=== PATIENT | female | born 1960 | race African-American/Black ===

== ENCOUNTER 2017-11-14 09:45 | Outpatient (CLI) | payer OTHER | END 2017-11-14 09:46 | disposition home or self-care (01) | LOC: BICMAMMO 09:45 | PROVIDERS: ATTEND Specialist | DX: Z12.31 Encounter for screening mammogram for malignant neoplasm of breast (principal) | CPT/HCPCS: 77067 ==

== ENCOUNTER 2018-05-29 22:30 | Observation (INO) | payer OTHER ==
[~2018-05-29 22:30] MED LIST: ISOVUE-370 76%-LOCM 1 ML ONE
[2018-05-29 22:54] LABS: #Eosinphils 0.2 thou/uL (0.0-0.7); #Lymphocytes 2.3 thou/uL (1.20-3.40); #Monocytes 0.8 thou/uL (0.11-0.59); #Neutrophils 2.4 thou/uL (1.40-6.50); %Basophils 0.8 % (0.0-1.0); %Eosinophils 2.9 % (0.0-10.0); %Lymphocytes 40.4 % (21.0-51.0); %Monocytes 13.8 % (0.0-10.0); %Neutrophils 42.1 % (42.0-75.0); Hemoglobin 13.4 g/dL (12.0-16.0); Mean Corpuscular HGB CONC 36.3 g/dL (32.0-36.0); Mean Corpuscular Hemoglobin 32.7 pg (27.0-31.0); Mean Corpuscular Volume 90.1 fL (78.0-98.0); Mean Platelet Volume 7.3 fL (7.4-10.4); Platelet Count 206 thou/uL (130-400); RBC Distribution Width 12.8 % (11.5-14.5); Red Blood Cell (RBC) Count 4.08 mill/uL (4.20-5.40); White Blood Cell (WBC) Count 5.6 thou/uL (4.8-10.8)
--- NOTE | 2018-05-29 22:57 | RAD ---
AP VIEW OF THE CHEST: 05/29/18 INDICATION: Chest pain. COMPARISON: Prior exam dated 04/24/14. IMPRESSION: No acute cardiopulmonary abnormality. Clothing artifact slightly limits image detail overlying the le ft lower chest wall. COMMENTS: No consolidation, pleural effusion or pneumothorax is evident. No acute osseous abnormality is eviden t. POS: [facility]
[2018-05-29 23:18] LABS: ALT (SGPT) 26 U/L (8-55); AST (SGOT) 50 U/L (5-34); Albumin 3.8 g/dL (3.5-5.0); Alkaline Phosphatase 102 U/L (40-150); Anion Gap 14 mmol/L (10-20); BUN (Urea Nitrogen) 5 mg/dL (9.8-20.1); Bilirubin, Total 0.3 mg/dL (0.2-1.2); CK (CPK) 444 U/L (29-168); Calc. Creatinine Clearance 0 mL/min (70-130); Calcium 9.2 mg/dL (7.8-10.44); Carbon Dioxide 25 mmol/L (22-29); Chloride 104 mmol/L (98-107); Estimated GFR-MDRD Greater than 90; Globulin 3.9 g/dL (2.4-3.5); Glucose 85 mg/dL (70-105); Potassium 3.5 mmol/L (3.5-5.1); Protein, Total 7.7 g/dL (6.0-8.3); Sodium 139 mmol/L (136-145)
[2018-05-29 23:21] LABS: Troponin I Less than 0.010 ng/mL (< 0.028)
[2018-05-30] MEDS ORDERED: Ketorolac Tromethamine 30 MG/ML VIAL ONE (01:02)
[2018-05-30] MEDS ORDERED: Acetaminophen 500 MG TAB ONE (01:55)
[2018-05-30] MEDS ORDERED: Nitroglycerin 0.4 MG TAB (25 Tab Bottle) ONE (01:55)
[2018-05-30 03:17] LABS: Troponin I 0.012 ng/mL (< 0.028)
[2018-05-30] MEDS ORDERED: Acetaminophen 325 MG TAB PO PRN (03:19)
[2018-05-30] MEDS ORDERED: Sodium Chloride 0.45% 1,000 ML IV SCH (03:30)
[2018-05-30 04:02] VITALS: BMI 43.4
--- NOTE | 2018-05-30 04:22 | HP ---
CHIEF COMPLAINT: Chest pain. HISTORY OF PRESENT ILLNESS: This patient is a 57-year-old female who reports a history of lupus, who presents with several weeks of worsening central chest pain with no radiation. She has no modifying factors. Describes it as pressure-like today, the patient reports that she has some associated shor tness of breath and significant dyspnea on exertion. She has generalized fatigue and weakness. She has lower extremity swelling. She states that, had swelling in her ankles and as she moves up her le gs, it becomes "hard." She reports all of this has been going on for several weeks, decided to come to the hospital today as they seem to be progressing a bit. She reports that she has had a stress te st here in the past, although cannot find any record of that. Today, the patient had some associated nausea and apparently episode of diarrhea with her chest discomfort. REVIEW OF SYSTEMS: Notable for intermittent diarrhea, chest pain, lower extremity edema, shortness o f breath, and generalized weakness, otherwise nothing through a 10-system review. PAST MEDICAL HISTORY: Systemic lupus erythematosus, hypertension, irritable bowel syndrome, asthma, lower extremity DVT. PAST SURGICAL HISTORY: Hysterectomy. The patient apparently has an IVC filter secondary to left low er extremity DVT. FAMILY HISTORY: Notable for coronary artery disease in her father, hypertension and Alzheimer's in h er mother. SOCIAL HISTORY: The patient dips Earle snuff. She drinks socially. Denies drugs. She is not . Her surrogate decision maker would be, Jorge Robledo, her brother and she is FULL CODE. PHYSICAL EXAMINATION: VITAL SIGNS: Pulse 87, BP 119/66, 96% on room air. GENERAL APPEARANCE Age appropriate female who is awake and alert, in no acute distress. HEENT: PERRL. NECK: Supple and symmetric. No JVD, lymphadenopathy, or carotid bruits. HEART: Regular without murmurs. LUNGS: Clear to auscultation bilaterally. No wheezes or rales. ABDOMEN: Soft, nontender, nondistended, positive bowel sounds. EXTREMITIES: Warm and dry. There is a bit of edema, but she has both ankles wrapped with Stevan wraps, which apparently happened here in the emergency department. Pulses are normal. NEUROLOGIC: Patient is oriented x3. Cranial nerves are intact. She has no focal deficits. SKIN: Generally warm and dry. PSYCHIATRIC: The patient has a normal affect and behavior. LABORATORY AND DIAGNOSTIC DATA: White count 5.6, hemoglobin 13.4, platelets 206,000. D-dimer was 0. 65, sodium 139, potassium 3.5, chloride 104, CO2 of 25, BUN 5, creatinine 0.79, AST is 50, ALT 26. C K 444, CK-MB 7, troponin less than 0.01. BNP is 90. Lower extremity Doppler is negative. Chest CT angiogram is negative. Chest x-ray is normal. IMPRESSION AND PLAN: 1. Chest pain. The patient reports that she has had a stress test here in the past, but it was not a nuclear medicine type. Etiology could be related to her GI symptoms are cardiac in nature. We violet l keep the patient in observation on telemetry monitoring. We will obtain serial cardiac isoenzymes. We will need to attempt to obtain her results of her prior stress test. She was not sure when that was how long ago it was, but given her underlying asthma type symptoms, we will not order a Cardioli te at this time. 2. Dyspnea on exertion. Order echocardiogram in light of the dyspnea and the worsening lower extrem ity edema, although her BNP is actually normal. 3. History of lupus. The patient reports she is on medication for this, but is not on her current m edication list. She says it is hydroxychloroquine, but she is apparently may be on hydrochlorothiazi de. We will need to attempt to get some more information from her PCP, Dr. Abdoulaye Medley to clarify that situation for her. 4. History of asthma. We will have p.r.n. nebulizers available to her. 5. History of irritable bowel syndrome. 6. History of asthma.
[2018-05-30 06:28] LABS: Troponin I 0.029 ng/mL (< 0.028)
[2018-05-30] MEDS ORDERED: ALPRAZOLAM 2 MG PO PRN (08:21)
[2018-05-30] MEDS ORDERED: Ergocalciferol 1.25 MG(50,000 UNITS) CAP PO SCH ×2 (08:30→09:00)
--- NOTE | 2018-05-30 08:42 | CT ---
PRELIMINARY REPORT/[facility]/EMERGENTY AFTER-HOURS PROCEDURE CT Angiography Chest With Intravenous Contrast CLINICAL HISTORY: 57 years old, female; Signs and symptoms; Dyspnea and shortness of breath; Patient HX: F57 presents w ith intermitted SOB that worsened tonight. Pt reports le swelling x1 week and also reports burning/ti ngling sensation in le. Pt reports a HX of dvts. Pt reports she has been taking aspirin for the past few days. Pt reports diarrhea and nausea. Pt reports pmhx of lupus TECHNIQUE: Axial computed tomographic angiography images of the chest with intravenous contrast using pulmonary embolism protocol. MIP reconstructed images were created and reviewed. COMPARISON: No relevant prior studies available. FINDINGS: Pulmonary arteries: No acute findings. No evidence of pulmonary embolism. Aorta: No acute findings. No thoracic aortic aneurysm or dissection. Lungs: No acute findings. No mass. No consolidation. Pleural space: No effusion. No pneumothorax. Heart: Mild cardiomegaly. No pericardial effusion. Bones/joints: No acute fracture. No dislocation. Soft tissues: No acute findings. Lymph nodes: No lymphadenopathy. Upper abdomen: Fatty infiltration of the liver. Left renal cortical cyst. IMPRESSION: No evidence of pulmonary embolism. Thank you for allowing us to participate in the care of your patient. Dictated and Authenticated by: Tony Moise MD 05/30/2018 12:44 AM Central Time ([place] & [place]) FINAL REPORT EMERGENCY AFTER HOURS CT ANGIOGRAM THORAX WITH IV CONTRAST AND 3D RECONSTRUCTIONS: Date: 05/29/18 HISTORY: Dyspnea, intermittent shortness of breath, worsening tonight. Lower extremity swelling for 1 week. IMPRESSION: 1. No CT evidence of a pulmonary embolus. 2. Atelectasis in the lingula. 3. Fatty infiltration of the liver. 4. 3.1 cm left renal cyst. Findings are in agreement with the preliminary report by Akira. POS: [facility]
--- NOTE | 2018-05-30 08:44 | ULT ---
PRELIMINARY REPORT/[facility]/EMERGENTY AFTER-HOURS PROCEDURE US Duplex Bilateral Lower Extremity Veins CLINICAL HISTORY: 57 years old, female; Pain and signs and symptoms; Edema, localized; Lower extremity, bilateral; Leg, lower and foot; Patient HX: Ble pain/edema more to lle foot. ; Additional info: Previous thrombus in left gsv p to mid calf in (2009) TECHNIQUE: Real-time duplex ultrasound scan of the bilateral lower extremity veins integrating B-mode two dimens ional vascular structure, Doppler spectral analysis, color flow Doppler imaging and compression. COMPARISON: No relevant prior studies available. FINDINGS: Right deep veins: No acute findings. No DVT in the right common femoral, femoral, popliteal, visualiz ed calf veins. The veins demonstrate normal color flow, are normally compressible, with normal phasic flow and/or augmentation response. Right superficial veins: No acute findings. No thrombus in the visualized right great saphenous vein. Left deep veins: No acute findings. No DVT in the left common femoral, femoral, popliteal, visualized calf veins. The veins demonstrate normal color flow, are normally compressible, with normal phasic f low and/or augmentation response. Left superficial veins: No acute findings. No thrombus in the visualized left great saphenous vein. Soft tissues: Calf edema. IMPRESSION: No deep venous thrombosis. Thank you for allowing us to participate in the care of your patient. Dictated and Authenticated by: Tony Moise MD 05/30/2018 12:59 AM Central Time ([place] & [place]) FINAL REPORT BILATERAL LOWER EXTREMITY VENOUS DOPPLER ULTRASOUND: Date: 05/29/18 FINDINGS/IMPRESSION: I agree with the preliminary report given by Akira. POS: [facility]
[2018-05-30] MEDS ORDERED: Lubiprostone 24 MCG CAP PO SCH (09:00)
[2018-05-30] MEDS ORDERED: TROSPIUM 20 MG TABLET PO SCH (09:00)
[2018-05-30] MEDS ORDERED: Non-Formulary Item 1 EACH (Omeprazole [Omeprazole] 40 MG) PO SCH (09:00)
[2018-05-30] MEDS ORDERED: Allopurinol 300 MG TAB PO SCH (09:00)
[2018-05-30] MEDS ORDERED: Hydroxychloroquine Sulfate 200 MG TAB PO SCH (09:00)
[2018-05-30] MEDS ORDERED: Non-Formulary Item 1 EACH (Acetaminophen With Codeine [Tylenol With Codeine #4] 1 TABLET) PO PRN (09:16)
[2018-05-30 09:37] LABS: CKMB 4.8 ng/mL (0-6.6); Troponin I Less than 0.010 ng/mL (< 0.028)
[2018-05-30] MEDS ORDERED: ALPRAZolam 1 MG TAB PO PRN (09:46)
[2018-05-30] MEDS ORDERED: Acetaminophen/Codeine 30-300mg Tablet PO PRN (09:48)
[2018-05-30] MEDS ORDERED: Regadenoson 0.4 MG/5 ML SYRINGE ONE (10:08)
--- NOTE | 2018-05-30 12:19 | NM ---
CARDIAC SPECT: CLINICAL HISTORY: 57-year-old female with chest pain, asthma, and hypertension. TECHNIQUE: A stress-only myocardial perfusion scan was performed following the intravenous administration of 27 mCi technetium-99m sestamibi. Pharmacologic stress with Lexiscan was monitored and interpreted by Shantell Sheehan NP. FINDINGS: Homogeneous tracer distribution is seen in the myocardial segments on the post stress images. GATED SPECT LVEF: 68%. WALL MOTION EXAM: Normal. IMPRESSION: Normal post stress myocardial perfusion scan. POS: [facility]
[2018-05-30 15:11] VITALS: BP 123/59; TEMP 98.3
[2018-05-30] MEDS ORDERED: Mirtazapine 30 MG TAB PO SCH (21:00)
== END 2018-05-30 17:37 | disposition home or self-care (01) ==
LOC: ERS 22:30 → 2SW 05-30 03:23
PROVIDERS: ADMIT Internal Medicine; ATTEND Internal Medicine
DX: R07.89 Other chest pain (principal); M32.9 Systemic lupus erythematosus, unspecified; I10 Essential (primary) hypertension; J45.909 Unspecified asthma, uncomplicated; K58.9 Irritable bowel syndrome, unspecified; F17.290 Nicotine dependence, other tobacco product, uncomplicated; Z86.718 Personal history of other venous thrombosis and embolism; Z79.899 Other long term (current) drug therapy; Z88.0 Allergy status to penicillin; Z88.1 Allergy status to other antibiotic agents; Z88.5 Allergy status to narcotic agent; Z95.828 Presence of other vascular implants and grafts
CPT/HCPCS: 36415; 71045; 71275; 78452; 80053; 82553; 83880; 84484; 85025; 85379; 93005; 93017; 93970; 94760; 96361; 96374; A9500; G0378; J1885; J2785

== ENCOUNTER 2018-10-07 20:47 | Emergency (ER) | payer OTHER | END 2018-10-07 21:30 | disposition home or self-care (01) | LOC: ERS 20:47 | DX: S43.52XA Sprain of left acromioclavicular joint, initial encounter (principal); I10 Essential (primary) hypertension; F41.9 Anxiety disorder, unspecified; F17.220 Nicotine dependence, chewing tobacco, uncomplicated; Z86.718 Personal history of other venous thrombosis and embolism; Z79.899 Other long term (current) drug therapy; Z79.891 Long term (current) use of opiate analgesic; X58.XXXA Exposure to other specified factors, initial encounter | CPT/HCPCS: 99283 ==

== ENCOUNTER 2018-11-20 08:25 | Outpatient (CLI) | payer OTHER ==
--- NOTE | 2018-11-20 09:33 | BD ---
BONE DENSITOMETRY USING DEXA: Date: 11/20/18 HISTORY: Postmenopausal screening for osteoporosis. FINDINGS: Lumbar Spine: BMD (g/cm2) L1 1.035 T-Score: 0.4 Z-Score: 1.4 L2 1.115 T-Score: 0.8 Z-Score: 1.9 L3 1.289 T-Score: 1.9 Z-Score: 3.0 L4 1.104 T-Score: 0.4 Z-Score: 1.6 L1-L4 1.143 T-Score: 0.9 Z-Score: 2.0 Femoral Neck: 0.887 T-Score: 0.3 Z-Score: 1.4 Total Femur: 0.969 T-Score: 0.2 Z-Score: 1.0 IMPRESSION: Normal bone mineral density. No evidence of osteopenia/osteoporosis. POS: [facility]
== END 2018-11-20 08:26 | disposition home or self-care (01) ==
LOC: BICMAMMO 08:25
PROVIDERS: ATTEND Specialist
DX: Z12.31 Encounter for screening mammogram for malignant neoplasm of breast (principal); Z13.820 Encounter for screening for osteoporosis
CPT/HCPCS: 77067; 77080

== ENCOUNTER 2019-03-25 11:20 | Outpatient (CLI) | payer OTHER ==
--- NOTE | 2019-03-25 12:51 | CT ---
CT HEAD WITH AND WITHOUT IV CONTRAST: Date: 03/25/19 HISTORY: Headaches. Recent fall. COMPARISON: 05/19/12. FINDINGS: There is no evidence of acute intracranial hemorrhage or infarct. The ventricles appear normal in siz e, shape, and position. There is no mass effect, shift of midline structures, or abnormal areas of co ntrast enhancement. No depressed skull fractures. Visualized paranasal sinuses remain well aerated. IMPRESSION: No acute intracranial abnormalities are demonstrated. POS: [facility]
== END 2019-03-25 11:21 | disposition home or self-care (01) ==
LOC: BICCT 11:20
PROVIDERS: ATTEND Specialist
DX: F07.81 Postconcussional syndrome (principal)
CPT/HCPCS: 70470

== ENCOUNTER 2019-04-09 09:55 | Emergency (ER) | payer OTHER ==
[2019-04-09] MEDS ORDERED: Proparacaine 0.5% Opth 15 ML BOT ONE (11:01)
[2019-04-09] MEDS ORDERED: Fluorescein Opthalmic Strip ONE (11:01)
== END 2019-04-09 12:00 | disposition home or self-care (01) ==
LOC: ERS 09:55
DX: H10.9 Unspecified conjunctivitis (principal); I10 Essential (primary) hypertension; Z86.718 Personal history of other venous thrombosis and embolism; F32.9 Major depressive disorder, single episode, unspecified; F41.9 Anxiety disorder, unspecified; F17.220 Nicotine dependence, chewing tobacco, uncomplicated; Z79.899 Other long term (current) drug therapy
CPT/HCPCS: 99283

== ENCOUNTER 2019-04-30 19:56 | Emergency (ER) | payer OTHER ==
[2019-04-30] MEDS ORDERED: Ibuprofen 800 MG TAB ONE (20:30)
[2019-04-30 23:09] LABS: #Basophils 0.1 thou/uL (0.0-0.2); #Eosinphils 0.1 thou/uL (0.0-0.7); #Lymphocytes 2.8 thou/uL (1.20-3.40); #Monocytes 0.6 thou/uL (0.11-0.59); #Neutrophils 2.4 thou/uL (1.40-6.50); %Basophils 1.4 % (0.0-1.0); %Eosinophils 1.4 % (0.0-10.0); %Lymphocytes 47.3 % (21.0-51.0); %Monocytes 10.1 % (0.0-10.0); %Neutrophils 39.9 % (42.0-75.0); Hemoglobin 12.4 g/dL (12.0-16.0); Mean Corpuscular HGB CONC 35.1 g/dL (32.0-36.0); Mean Corpuscular Hemoglobin 30.5 pg (27.0-31.0); Mean Corpuscular Volume 86.9 fL (78.0-98.0); Mean Platelet Volume 7.9 fL (7.4-10.4); Platelet Count 208 thou/uL (130-400); RBC Distribution Width 12.5 % (11.5-14.5); Red Blood Cell (RBC) Count 4.06 mill/uL (4.20-5.40); White Blood Cell (WBC) Count 5.9 thou/uL (4.8-10.8)
[2019-04-30 23:31] LABS: ALT (SGPT) 24 U/L (8-55); AST (SGOT) 32 U/L (5-34); Alkaline Phosphatase 70 U/L (40-150); Anion Gap 15 mmol/L (10-20); BUN (Urea Nitrogen) 12 mg/dL (9.8-20.1); Bilirubin, Total 0.3 mg/dL (0.2-1.2); Calc. Creatinine Clearance 0 mL/min (70-130); Calcium 9.5 mg/dL (7.8-10.44); Carbon Dioxide 24 mmol/L (22-29); Chloride 103 mmol/L (98-107); Estimated GFR-MDRD 90; Globulin 3.5 g/dL (2.4-3.5); Glucose 88 mg/dL (70-105); Potassium 3.9 mmol/L (3.5-5.1); Protein, Total 7.5 g/dL (6.0-8.3); Sodium 138 mmol/L (136-145)
--- NOTE | 2019-04-30 23:51 | CT ---
CT OF THE BRAIN WITHOUT CONTRAST: 04/30/19 HISTORY: Dizziness, near syncope. FINDINGS: Comparison made with the exam of 03/25/19. No evidence of acute infarct, hemorrhage, midline shift or abnormal extra-axial fluid collections are seen. The ventricular size is normal and the basilar cisterns patent. The bony calvarium is intact. There is mild mucosa disease in the right ethmoid sinuses. IMPRESSION: No CT evidence of acute intracranial process. POS: [facility]
--- NOTE | 2019-04-30 23:56 | CT ---
CT ORBITS WITH AND WITHOUT IV CONTRAST: 04/30/19 HISTORY: Left eye pain and swelling. Onset two weeks ago when the patient sprayed bug spray in her eye. FINDINGS: No proptosis or retrobulbar mass is seen. The extraocular musculature and optic nerves are bilaterall y symmetric without abnormal postcontrast enhancement. No loculated fluid collection is seen in the s oft tissues to suggest abscess formation. The bony orbital marion are intact. There is mucosal disease in the paranasal sinuses. There is mild soft tissue swelling in the medial aspect of the left eye. IMPRESSION: No evidence of soft tissue abscess. POS: [facility]
[2019-05-01] MEDS ORDERED: Proparacaine 0.5% Opth 15 ML BOT ONE (00:11)
[2019-05-01] MEDS ORDERED: Fluorescein Opthalmic Strip ONE (01:10)
--- NOTE | 2019-05-02 16:56 | EKG ---
Test Reason : EMERGENCY EXAM Blood Pressure : / mmHG Vent. Rate : 073 BPM Atrial Rate : 073 BPM P-R Int : 150 ms QRS Dur : 090 ms QT Int : 414 ms P-R-T Axes : 069 057 025 degrees QTc Int : 456 ms Normal sinus rhythm Normal ECG Confirmed by YANELY ARRIAGA DO ([id number]), restaurant expeditor JORGE CORONADO ([id number]) on 05/02/2019 4:56:23 PM Referred By: BART Confirmed By:YANELY ARRIAGA DO
== END 2019-05-01 01:16 | disposition home or self-care (01) ==
LOC: ERS 19:56
DX: L03.213 Periorbital cellulitis (principal); I10 Essential (primary) hypertension; M32.9 Systemic lupus erythematosus, unspecified; F32.9 Major depressive disorder, single episode, unspecified; F41.9 Anxiety disorder, unspecified; M06.9 Rheumatoid arthritis, unspecified; F17.220 Nicotine dependence, chewing tobacco, uncomplicated; Z86.718 Personal history of other venous thrombosis and embolism; Z79.899 Other long term (current) drug therapy
CPT/HCPCS: 70450; 70481; 80053; 84484; 85025; 85652; 86140; 93005

== ENCOUNTER 2019-11-24 09:47 | Outpatient (CLI) | payer OTHER ==
--- NOTE | 2019-11-25 10:12 | MMO ---
Bilateral MAMMO Bilat Screen DDI. CLINICAL HISTORY: Patient is 59 years old and is seen for screening. The patient has no family history of breast cancer. The patient has no personal history of cancer. VIEWS: The views performed were: bilateral craniocaudal and bilateral mediolateral oblique. FILMS COMPARED: The present examination has been compared to prior imaging studies performed at [facility] on 09/14/2014, 09/19/2015, 09/21/2016 and 11/14/2017. This study has been interpreted with the assistance of computer-aided detection. MAMMOGRAM FINDINGS: The breasts are almost entirely fat. There are no suspicious masses, suspicious calcifications, or new areas of architectural distortion. IMPRESSION: THERE IS NO MAMMOGRAPHIC EVIDENCE OF MALIGNANCY. A ROUTINE FOLLOW-UP MAMMOGRAM IN 1 YEAR IS RECOMMENDED. ACR BI-RADS Category 1 - Negative MAMMOGRAPHY NOTE: 1. A negative mammogram report should not delay a biopsy if a dominant of clinically suspicious mass is present. 2. Approximately 10% to 15% of breast cancers are not detected by mammography. 3. Adenosis and dense breasts may obscure an underlying neoplasm. Reported by: JAVIER SCHOFIELD MD Electonically Signed: [id number]
== END 2019-11-24 09:48 | disposition home or self-care (01) ==
LOC: BICMAMMO 09:47
PROVIDERS: ATTEND Specialist
DX: Z12.31 Encounter for screening mammogram for malignant neoplasm of breast (principal)
CPT/HCPCS: 77067

== ENCOUNTER 2020-11-25 09:15 | Outpatient (CLI) | payer OTHER ==
--- NOTE | 2020-11-25 10:02 | MMO ---
Bilateral MAMMO Bilat Screen DDI. CLINICAL HISTORY: Patient is 60 years old and is seen for screening. The patient has no family history of breast cancer. The patient has no personal history of cancer. VIEWS: The views performed were: bilateral craniocaudal and bilateral mediolateral oblique. FILMS COMPARED: The present examination has been compared to prior imaging studies performed at [facility] on 09/19/2015, 09/21/2016, 11/14/2017 and 11/24/2019. This study has been interpreted with the assistance of computer-aided detection. MAMMOGRAM FINDINGS: The breasts are almost entirely fat. There are no suspicious masses, suspicious calcifications, or new areas of architectural distortion. IMPRESSION: THERE IS NO MAMMOGRAPHIC EVIDENCE OF MALIGNANCY. A ROUTINE FOLLOW-UP MAMMOGRAM IN 1 YEAR IS RECOMMENDED. ACR BI-RADS Category 1 - Negative MAMMOGRAPHY NOTE: 1. A negative mammogram report should not delay a biopsy if a dominant of clinically suspicious mass is present. 2. Approximately 10% to 15% of breast cancers are not detected by mammography. 3. Adenosis and dense breasts may obscure an underlying neoplasm. Reported by: ALANNAH CAMPOS MD Electonically Signed: [id number]
== END 2020-11-25 09:16 | disposition home or self-care (01) ==
LOC: BICMAMMO 09:15
PROVIDERS: ATTEND Specialist
DX: Z12.31 Encounter for screening mammogram for malignant neoplasm of breast (principal)
CPT/HCPCS: 77067

== ENCOUNTER 2021-06-13 10:13 | Outpatient (CLI) | payer OTHER | END 2021-06-13 10:14 | disposition home or self-care (01) | LOC: BICRAD 10:13 | PROVIDERS: ATTEND Specialist | DX: R07.9 Chest pain, unspecified (principal) | CPT/HCPCS: 71046 ==

== ENCOUNTER 2022-09-12 15:17 | Outpatient (CLI) | payer OTHER | END 2022-09-12 15:18 | disposition home or self-care (01) | LOC: BICRAD 15:17 | PROVIDERS: ATTEND Specialist | DX: M79.641 Pain in right hand (principal); M79.642 Pain in left hand; W19.XXXA Unspecified fall, initial encounter ==

== ENCOUNTER 2022-10-31 10:24 | Outpatient (CLI) | payer OTHER | END 2022-10-31 10:25 | disposition home or self-care (01) | LOC: BICRAD 10:24 | PROVIDERS: ATTEND Specialist | DX: M25.531 Pain in right wrist (principal); M79.641 Pain in right hand ==

== ENCOUNTER 2023-01-22 13:49 | Outpatient (CLI) | payer OTHER | END 2023-01-22 13:50 | disposition home or self-care (01) | LOC: BICMAMMO 13:49 | PROVIDERS: ATTEND Specialist | DX: Z12.31 Encounter for screening mammogram for malignant neoplasm of breast (principal) | CPT/HCPCS: 77067 ==